=== PATIENT | male | born 1955 | race Caucasian/White ===

== ENCOUNTER 2023-06-13 13:45 | Inpatient (IN) | payer BC, MEDICAID ==
[~2023-06-13] VITALS: Ht 182.9 cm; Wt 78.5 kg
[2023-06-13 13:49] VITALS: O2SAT 99
[2023-06-13 14:55] LABS: BASOPHILS % 0.6 % (0.0-2.0); EOSINOPHILS % 0.7 % (0.0-5.0); HEMATOCRIT. 36.1 % (42.0-52.0); HEMOGLOBIN. 12.5 g/dL (14.0-18.0); LYMPHOCYTES % 16.7 % (20.0-50.0); MEAN CORPUSCULAR HEMOGLOBIN 31.4 pg (28.0-32.0); MEAN CORPUSCULAR HGB CONC 34.7 g/dL (31.0-37.0); MEAN CORPUSCULAR VOLUME 90.6 fL (80.0-94.0); MEAN PLATELET VOLUME 6.6 fl (7.4-10.4); MONOCYTES % 5.7 % (2.0-8.0); NEUTROPHILS % 76.3 % (40.0-76.0); PLATELET 219 x1000/uL (130-400); RED BLOOD CELL COUNT 3.98 mill/uL (4.7-6.1); RED CELL DISTRIBUTION WIDTH 14.3 % (11.6-14.6); WHITE BLOOD COUNT 5.5 x1000/uL (4.5-11.0)
[2023-06-13 15:09] LABS: CHLORIDE 108 mEq/L (98-107); INDEX HEMOLYSI 1 (1-3); INDEX ICTERIC 1 (1-4); INDEX LIPEMIC 1 (1-3); POTASSIUM 3.2 mEq/L (3.5-5.1); SODIUM 143 mEq/L (136-145)
[2023-06-13 15:24] LABS: ALANINE AMINOTRANSFERASE 29 IU/L (13-61); ALBUMIN 4.2 g/dL (3.4-5.0); ASPARTATE AMINOTRANSFERASE 21 IU/L (15-37); BILIRUBIN TOTAL 0.8 mg/dL (0.1-1.0); CALCIUM 9.3 mg/dL (8.5-10.1); CARBON DIOXIDE 25 mEq/L (21-32); CREATININE 0.8 mg/dL (0.6-1.3); GLUCOSE 81 mg/dL (70-105); UREA NITROGEN BLOOD 27 mg/dL (7-21)
[2023-06-13] MEDS ORDERED: ONDANSETRON HCL 4MG/2ML INJ IV STA (17:48)
[2023-06-13] MEDS ORDERED: MORPHINE SULFATE 4 MG/ML CPJ (NOT FOR IM USE) IV STA (17:48)
[2023-06-13] MEDS ORDERED: SODIUM CHLORIDE 0.9% 1,000 ML IV ONE (18:00)
[2023-06-13] MEDS: MORPHINE SULFATE 4 MG/ML CPJ (NOT FOR IM USE) IV NR (22:03)
[2023-06-13] MEDS: ONDANSETRON HCL 4MG/2ML INJ IV NR (22:04)
[2023-06-13] MEDS ORDERED: ONDA4TAB50 MT (23:54)
[2023-06-14] MEDS ORDERED: QUETIAPINE FUMARATE 50MG TABLET PO SCH
[2023-06-14] MEDS ORDERED: SODIUM CHLORIDE 0.9% 1,000 ML IV ONE
[2023-06-14] MEDS: ONDANSETRON HCL 4MG/2ML INJ IV NR (00:57)
[2023-06-14] MEDS: MORPHINE SULFATE 4 MG/ML CPJ (NOT FOR IM USE) IV NR (00:58)
[2023-06-14] MEDS: QUETIAPINE FUMARATE 200MG TABLET PO SCH ×2 (00:59→09:00)
[2023-06-14 03:31] LABS: CLARITY URINE TURBID (CLEAR); COLOR URINE YELLOW (YELLOW); GLUCOSE URINE NEGATIVE (NEGATIVE); KETONES URINE NEGATIVE (NEGATIVE); LEUKOCYTE ESTERASE URINE 1+ (NEGATIVE); NITRITE URINE POSITIVE (NEGATIVE); OCCULT BLOOD URINE 3+ (NEGATIVE); PH URINE 8.5 (4.5-8.0); PROTEIN URINE TRACE (NEGATIVE); SPECIFIC GRAVITY URINE 1.002 (1.005-1.030); UROBILINOGEN URINE 0.2 E.U./dL (0.2-1.0)
[2023-06-14 03:57] LABS: WBC URINE 15-25 /hpf (0-2)
[2023-06-14 03:58] LABS: BACTERIA URINE 1+; MUCUS URINE 2+ /lpf (NONE/TRACE); SQUAMOUS EPITHELIAL CELL URINE 1+ /lpf (RARE/1+)
[2023-06-14 08:00] VITALS: BP 118/46; PULSE 60; RESP 18; TEMP 97.5
[2023-06-14] MEDS ORDERED: IOHEXOL-300 100 ML BOTTLE ONE (09:46)
[2023-06-14 12:00] VITALS: BP 122/53; PULSE 58; RESP 18; TEMP 98.4
[2023-06-14 16:00] VITALS: BP 120/55; PULSE 61; RESP 18; TEMP 97.7
[2023-06-14] MEDS ORDERED: ACETAMINOPHEN 325MG TABLET PO PRN (16:30)
[2023-06-14] MEDS ORDERED: CLONIDINE 0.1MG TABLET PO PRN (16:30)
[2023-06-14] MEDS ORDERED: LORAZEPAM 0.5MG TABLET PO PRN (16:30)
[2023-06-14] MEDS ORDERED: ONDANSETRON HCL 4MG/2ML INJ IV PRN (16:30)
[2023-06-14] MEDS: ENOXAPARIN 40MG/0.4ML SYR SUBCUT SCH (18:21)
[2023-06-14] MEDS: LEVOFLOXACIN 500MG PREMIX 100 ML IV SCH (18:22)
[2023-06-14 20:00] VITALS: BP 107/60; PULSE 60; RESP 18; TEMP 97.5
[2023-06-14] MEDS: TRAZODONE HCL 50MG TABLET PO SCH (21:26)
[2023-06-15] MEDS: SODIUM CHLORIDE 0.9% 1,000 ML IV SCH ×3 (00:22→17:16)
[2023-06-15 06:28] LABS: BASOPHILS % 0.4 % (0.0-2.0); EOSINOPHILS % 3.3 % (0.0-5.0); HEMATOCRIT. 30.3 % (42.0-52.0); HEMOGLOBIN. 10.4 g/dL (14.0-18.0); LYMPHOCYTES % 35.1 % (20.0-50.0); MEAN CORPUSCULAR HEMOGLOBIN 30.8 pg (28.0-32.0); MEAN CORPUSCULAR HGB CONC 34.4 g/dL (31.0-37.0); MEAN CORPUSCULAR VOLUME 89.5 fL (80.0-94.0); MEAN PLATELET VOLUME 6.7 fl (7.4-10.4); MONOCYTES % 8.1 % (2.0-8.0); NEUTROPHILS % 53.1 % (40.0-76.0); PLATELET 147 x1000/uL (130-400); RED BLOOD CELL COUNT 3.39 mill/uL (4.7-6.1); WHITE BLOOD COUNT 4.1 x1000/uL (4.5-11.0)
[2023-06-15 08:00] VITALS: BP 121/52; PULSE 50; RESP 18; TEMP 96.6
[2023-06-15] MEDS: QUETIAPINE FUMARATE 200MG TABLET PO SCH (09:43)
[2023-06-15] MEDS: FLUOXETINE HCL 10 MG CAPSULE PO SCH (09:46)
[2023-06-15 10:14] LABS: CHLORIDE 109 mEq/L (98-107); INDEX HEMOLYSI 1 (1-3); INDEX ICTERIC 1 (1-4); INDEX LIPEMIC 1 (1-3); POTASSIUM 3.3 mEq/L (3.5-5.1); SODIUM 143 mEq/L (136-145)
[2023-06-15] MEDS ORDERED: POTASSIUM CHLORIDE 20MEQ TABLET SR PO NR (10:45)
[2023-06-15] MEDS: LORATADINE 10MG TABLET PO SCH (11:14)
[2023-06-15 11:51] LABS: CALCIUM 8.4 mg/dL (8.5-10.1); CREATININE 0.6 mg/dL (0.6-1.3); GLUCOSE 65 mg/dL (70-105); UREA NITROGEN BLOOD 27 mg/dL (7-21)
[2023-06-15 12:00] VITALS: BP 115/61; PULSE 93; RESP 18; TEMP 97.5
[2023-06-15 14:41] LABS: CARBON DIOXIDE 25 mEq/L (21-32)
[2023-06-15 16:00] VITALS: BP 98/42; PULSE 80; RESP 19; TEMP 97.6
[2023-06-15] MEDS: ENOXAPARIN 40MG/0.4ML SYR SUBCUT SCH (17:16)
[2023-06-15] MEDS: LEVOFLOXACIN 500MG PREMIX 100 ML IV SCH (17:16)
[2023-06-15 20:00] VITALS: BP 105/52; PULSE 71; RESP 20; TEMP 96.5
[2023-06-15] MEDS: TRAZODONE HCL 50MG TABLET PO SCH (21:00)
[2023-06-16] VITALS: BP 116/56; PULSE 64; RESP 20; TEMP 96.4
[2023-06-16] MEDS: SODIUM CHLORIDE 0.9% 1,000 ML IV SCH ×2 (00:30→08:19)
[2023-06-16 04:00] VITALS: BP 136/67; PULSE 78; RESP 20; TEMP 96.1
[2023-06-16 08:00] VITALS: BP 125/74; PULSE 77; RESP 18; TEMP 97.5
[2023-06-16] MEDS: LORATADINE 10MG TABLET PO SCH (08:19)
[2023-06-16] MEDS: FLUOXETINE HCL 10 MG CAPSULE PO SCH (08:19)
[2023-06-16] MEDS: QUETIAPINE FUMARATE 200MG TABLET PO SCH (08:19)
[2023-06-16] MEDS ORDERED: LEVO750T68 MT (12:11)
[2023-06-16] MEDS ORDERED: LEVOFLOXACIN 500MG TABLET PO SCH (18:00)
[2023-06-17 08:00] VITALS: BP 111/59; PULSE 62; RESP 19; TEMP 95.9
[2023-06-17 12:00] VITALS: BP 102/57; PULSE 59; RESP 18; TEMP 97.9
[2023-06-17 16:00] VITALS: BP 102/79; PULSE 59; RESP 19; TEMP 100.4
== END 2023-06-16 10:20 | disposition left against medical advice (07) | DRG 690 ==
LOC: ER 13:52 → MICUSO 06-14 01:27 → 6EST 06-14 07:52
PROVIDERS: ADMIT Family Medicine Adult Medicine; ATTEND Family Medicine Adult Medicine
DX: N39.0 Urinary tract infection, site not specified (principal); M84.451A Pathological fracture, right femur, initial encounter for fracture; K44.9 Diaphragmatic hernia without obstruction or gangrene; F20.9 Schizophrenia, unspecified; E87.6 Hypokalemia; K20.90 Esophagitis, unspecified without bleeding; Z53.29 Procedure and treatment not carried out because of patient's decision for other reasons
CPT/HCPCS: 36415; 74177; 80048; 80053; 81003; 83605; 85025; 87077; 87186; 99285; C1893; J1650; J1956; J2270; J2405; J7030; Q9967